=== PATIENT | male | born 1970 | race Caucasian/White ===

== ENCOUNTER 2021-01-22 16:47 | Emergency (ER) | payer OTHER ==
[~2021-01-22 16:47] MED LIST: ALLOPURINOL100 MG PO; AMBIEN10 MG PO; ANASTROZOLE1 MG PO; BACLOFEN 20MG T20 MG PO; BYSTOLIC10 MG PO; COLACE100 MG PO; CRESTOR10 MG PO; DEPO-TESTO100 MG/1 M IM; FLAGYL500 MG PO; KLONOPIN1 MG PO; LEVAQUIN750 MG PO; LYRICA25 MG PO; NARCAN4 MG INH; NORCO 10-325 T1 EACH PO; NORCO 7.5-3251 EACH PO; OXYCODONE HCL15 MG PO; PERCOCET 10-321 EACH PO; PERCOCET 5-3251 EACH PO; SYNTHROID75 MCG PO; ZANTAC150 M1 PO; ZANTAC150 MG PO; ZESTORETIC 20-1 EACH PO; ZOFRAN4 MG PO
[2021-01-22 17:13] LABS: BASOPHIL 0.5 % (0-2); EOSINOPHIL 0.8 % (0-5); HCT 50.9 % (42.0-52.0); HGB 17.4 g/dl (13.2-18.0); LYMPHOCYTE 21.4 % (15-48); MCH 32.6 pg (25.0-31.0); MCHC 34.2 g/dL (32.0-36.0); MCV 95.3 fL (78.0-100.0); MONOCYTE 9.3 % (0-12); MPV 10.5 fL (6.0-9.5); NEUTROPHIL 67.6 % (41-80); NRBC 0; PLT 187 K/uL (150-400); RBC 5.34 M/uL (4.70-6.00); RDW 12.8 % (11.5-14.0); WBC 14.6 K/uL (4.0-10.5)
[2021-01-22 17:44] LABS: ALBUMIN 4.4 g/dL (3.4-5.0); BILIRUBIN - TOTAL 1.8 mg/dL (0.2-1.0); BUN/CREAT RATIO (CALC) 10.7 RATIO; CREATININE 1.49 mg/dL (0.67-1.17); GLOBULIN (CALCULATION) 3.6 g/dL; PHOSPHORUS 4.7 mg/dL (2.6-4.7); POTASSIUM 4.2 mmol/L (3.5-5.1)
[2021-01-22 18:49] LABS: BILIRUBIN NEGATIVE (NEGATIVE); BLOOD 3+ Ery/uL (NEGATIVE); CLARITY HAZY (CLEAR); COLOR YELLOW (YELLOW); GLUCOSE (U) NORMAL (NORMAL); LEUKOCYTES NEGATIVE Leu/uL (NEGATIVE); NITRITE NEGATIVE (NEGATIVE); PROTEIN NEGATIVE (NEGATIVE); SPECIFIC GRAVITY >=1.030 (1.001-1.030); UROBILINOGEN 0.2 mg/dL (0.2-1.0)
[2021-01-22 18:53] LABS: BACTERIA TRACE; SQUAMOUS EPITHELIAL CELLS RARE; URINARY RBC 20-50
[2021-01-22] MEDS ORDERED: NORCO 5-325 TA1 EACH PO (19:21)
[2021-01-22] MEDS ORDERED: FLOMAX0.4 MG PO (19:21)
[2021-01-22] MEDS ORDERED: ONDANSETRON ODT4 MG PO (19:22)
== END 2021-01-22 19:48 | disposition home or self-care (01) ==
LOC: FER 16:47
PROVIDERS: Emergency Medicine
DX: N13.2 Hydronephrosis with renal and ureteral calculous obstruction (principal); I10 Essential (primary) hypertension; E78.5 Hyperlipidemia, unspecified; Z87.442 Personal history of urinary calculi; Z90.49 Acquired absence of other specified parts of digestive tract; Z88.6 Allergy status to analgesic agent; Z88.0 Allergy status to penicillin
CPT/HCPCS: 36415; 80053; 81001; 84100; 85025; J1170; J1885; J2270; J2405; J7030

== ENCOUNTER → 2021-07-04 | Day surgery (SDC) | payer OTHER ==
[~2021-07-04] VITALS: Ht 185.4 cm; Wt 93.2 kg
[~2021-07-04] MED LIST changes: +FLOMAX0.4 MG PO; +NORCO 5-325 TA1 EACH PO; +ONDANSETRON ODT4 MG PO; +PEPCID AC20 MG PO; +PROTONIX40 M1 PO; +ZYRTEC10 M3 PO
== END | disposition home or self-care (01) ==
LOC: FAS 06:58
DX: Z12.11 Encounter for screening for malignant neoplasm of colon (principal); K31.9 Disease of stomach and duodenum, unspecified; K20.0 Eosinophilic esophagitis; K31.1 Adult hypertrophic pyloric stenosis; K56.609 Unspecified intestinal obstruction, unspecified as to partial versus complete obstruction; K44.9 Diaphragmatic hernia without obstruction or gangrene; K52.9 Noninfective gastroenteritis and colitis, unspecified; F41.9 Anxiety disorder, unspecified; F98.8 Other specified behavioral and emotional disorders with onset usually occurring in childhood and adolescence; M54.5 Low back pain; G89.29 Other chronic pain; K21.9 Gastro-esophageal reflux disease without esophagitis; I10 Essential (primary) hypertension; E78.00 Pure hypercholesterolemia, unspecified; E03.9 Hypothyroidism, unspecified; Z88.6 Allergy status to analgesic agent; Z88.0 Allergy status to penicillin
CPT/HCPCS: J1610; J2250; J2704; J7120